=== PATIENT | female | born 1965 | race Caucasian/White ===

== ENCOUNTER → 2018-02-09 | Outpatient (CLI) | payer OTHER ==
--- NOTE | 2018-02-10 08:23 | RADIOLOGY IMAGING REPORT ---
FACILITY: [facility] PATIENT NAME: LYDIA CRISOSTOMO : [id number] MR: [id number] V: [id number] EXAM DATE: ORDERING PHYSICIAN: KELSEY GARCIA TECHNOLOGIST: Clare Sanchez PROCEDURE:BILATERAL DIGITAL SCREENING MAMMOGRAM WITH CAD ASSISTED INTERPRETATION & 3D TOMOSYNTHESIS COMPARISON:Prior mammograms 01/27/17, 01/18/16, 01/16/15, 11/22/12. INDICATIONS:SCREENING FINDINGS: Dense heterogeneous fibroglandular tissue is seen throughout the breasts. The parenchymal pattern has remained stable allowing for difference in mammographic technique & patient positioning. There is no evidence of malignant appearing mass, malignant appearing calcifications or other secondary sign of malignancy in either breast. DIAGNOSTIC CATEGORY 1--NEGATIVE. RECOMMENDATIONS: ROUTINE MAMMOGRAM AND CLINICAL EVALUATION. IMPRESSION: BIRADS 1: Negative. No significant abnormality is seen. Dictated by: Evangelina Dawn M.D. on 02/09/2018 at 16:26 Transcribed by: YUE on 02/10/2018 at 7:54 Approved by: Evangelina Dawn M.D. on 02/10/2018 at 8:22 [facility]
== END ==
LOC: MAMO 01:53
PROVIDERS: ATTEND Nurse Practitioner Psychiatric/Mental Health
DX: Z12.31 Encounter for screening mammogram for malignant neoplasm of breast (principal)
CPT/HCPCS: 77063; 77067

== ENCOUNTER 2018-04-28 00:04 | Day surgery (SDC) | payer OTHER ==
[~2018-04-28] VITALS: Ht 160 cm; Wt 64.0 kg
[~2018-04-28 00:04] MED LIST: ALBU8.5H IH; ALPR-429 PO; CHOL10005 PO; CYCL10TA29 PO; DUL100/5PT INH; IBUP-136 PO; MULT1CAP59 PO; PARO-243 PO; TIO18R INH; TRAZ50TA34 PO
[2018-04-28] MEDS ORDERED: PROPOFOL EMUL(*) 10MG/ML 20 ML 20 ML ONE ×3 (07:06→10:31)
[2018-04-28 08:15] VITALS: BP 142/74
[2018-04-28] MEDS ORDERED: NORMOSOL R SOLN(*) 1000 ML BAG 1,000 ML IV PRN (08:45)
[2018-04-28] MEDS ORDERED: LIDOCAINE/SOD BICARB 8.4% SYR ID ONE (08:45)
[2018-04-28 10:42] VITALS: BP 144/73
--- NOTE | 2018-04-28 10:49 | Short(Outpt) Discharge Summary ---
Discharge Summary Reason for Hosp/Final Diag: (1) Family hx colonic polyps Hospital Course & Plan: Colonoscopy with polypectomy x3 completed without problems. Departure Discharge to: Home, Self Care Discharge Instructions Home Meds Reported Medications Cyclobenzaprine Hcl (CYCLOBENZAPRINE HCL) 10 Mg Tablet, 10 MG PO PRN, #9 TAB 04/16/18 Albuterol Sulfate 90 Mcg/Act (PROAIR HFA 90 MCG/ACT) 8.5 Gm Hfa.aer.ad, 2 PUFF IH PRN, INHALER 04/16/18 Cholecalciferol (Vitamin D3) (VITAMIN D3) 1,000 Unit Tablet, 1500 UNIT PO QDAY, TAB 04/16/18 Alprazolam (XANAX) Unknown Strength Tablet, 1 MG PO PRN, TAB 03/23/18 Tiotropium Holden (SPIRIVA) Unknown Strength Inh, 18 MCG INH QDAY, INH 03/23/18 Mometasone/Formoterol (DULERA 100 MCG/5 MCG INHALER) Unknown Strength Inh, 200 MCG INH BID, INH 03/23/18 Trazodone Hcl (TRAZODONE HCL) Unknown Strength Tablet, 100 MG PO QHS 03/23/18 Paroxetine Hcl (PAXIL) Unknown Strength Tablet, 20 MG PO QDAY, TAB 03/23/18 Multivitamin (MULTIVITAMINS) 1 Each Capsule, 1 EACH PO, CAPSULE 03/23/18 Ibuprofen (IBUPROFEN) Unknown Strength Capsule, 600 MG PO BIDBS, CAPSULE 03/23/18 Diet: Regular Activity: As Tolerated Special Instructions: Your colonoscopy was completed without problems and your prep was excellent (Good Job!!). I removed 3 small polyps from your sigmoid colon and rectum and they were sent to pathology. My office will call you in the next week or two and let you know what the polyps are, but in any case, you should have another colonoscopy in 5 years due to your mother's history of colon polyps. CLYDE NELSON MD Apr 28, 2018 10:49
[2018-04-28 11:15] VITALS: BP 138/76
[2018-04-28 11:17] VITALS: BP 138/81
== END 2018-04-28 11:30 | disposition home or self-care (01) ==
LOC: OR 00:04
PROVIDERS: ATTEND Surgery
DX: Z12.11 Encounter for screening for malignant neoplasm of colon (principal); K63.5 Polyp of colon; Z83.71 Family history of colonic polyps; K62.1 Rectal polyp
CPT/HCPCS: 00811; 45385; 88305; J2704

== ENCOUNTER 2018-05-24 11:08 | Emergency (ER) | payer OTHER ==
[2018-05-24 11:13] VITALS: BP 145/57
--- NOTE | 2018-05-24 11:13 | ER Report ---
History and Physical Time Seen By MD: 11:13 HPI/ROS CHIEF COMPLAINT: Knee pain HISTORY OF PRESENT ILLNESS: This is a 52-year-old female presents to the emergency department for right knee pain. Patient states that last night she slipped and landed with her right knee on a tile floor. Has had increased pain and mild swelling since. Pain seems to be increasing. Patient having difficulties ambulating. No previous injuries to the knee. CMS intact. REVIEW OF SYSTEMS: Respiratory: No cough, no dyspnea. Cardiovascular: No chest pain, no palpitations. Gastrointestinal: No vomiting, no abdominal pain. Musculoskeletal: As above. Allergies: Coded Allergies: No Known Drug Allergies (Unverified , 05/24/18) Home Meds Active Scripts Ondansetron Hcl (ZOFRAN) 4 Mg Tablet, 4 MG PO Q4-6H PRN for prn, #20 TAB Prov:JIMMY AVILES [facility] 05/24/18 Cyclobenzaprine Hcl (CYCLOBENZAPRINE HCL) 10 Mg Tablet, 5-10 MG PO TID PRN for MUSCLE SPASMS, #9 TAB 0 Refills Prov:JIMMY AVIELS [facility] 05/24/18 Reported Medications Cyclobenzaprine Hcl (CYCLOBENZAPRINE HCL) 10 Mg Tablet, 10 MG PO PRN, #9 TAB 04/16/18 Albuterol Sulfate 90 Mcg/Act (PROAIR HFA 90 MCG/ACT) 8.5 Gm Hfa.aer.ad, 2 PUFF IH PRN, INHALER 04/16/18 Cholecalciferol (Vitamin D3) (VITAMIN D3) 1,000 Unit Tablet, 1500 UNIT PO QDAY, TAB 04/16/18 Alprazolam (XANAX) Unknown Strength Tablet, 1 MG PO PRN, TAB 03/23/18 Tiotropium Nocona (SPIRIVA) Unknown Strength Inh, 18 MCG INH QDAY, INH 03/23/18 Mometasone/Formoterol (DULERA 100 MCG/5 MCG INHALER) Unknown Strength Inh, 200 MCG INH BID, INH 03/23/18 Trazodone Hcl (TRAZODONE HCL) Unknown Strength Tablet, 100 MG PO QHS 03/23/18 Paroxetine Hcl (PAXIL) Unknown Strength Tablet, 20 MG PO QDAY, TAB 03/23/18 Multivitamin (MULTIVITAMINS) 1 Each Capsule, 1 EACH PO, CAPSULE 03/23/18 Ibuprofen (IBUPROFEN) Unknown Strength Capsule, 600 MG PO BIDBS, CAPSULE 03/23/18 Past Medical/Surgical History The patient has a past medical and surgical history of COPD, arthritis, osteoporosis, wears glasses, deviated septum with repair, hysterectomy, cholecystectomy, depression, anxiety, does drink large quantities of alcohol weekly, hysterectomy, tonsillectomy, mole removal. Reviewed Nurses Notes: Yes Hx Smoking: Yes (15 CIGARETTES A DAY) Smoking Status: Current: Every Day Smoker Hx Alcohol Use: Yes (18 BEERS A WEEK) Constitutional Vital Sign - Last 24 Hours 05/24/18 11:13 Temp 98.0 Pulse 107 Resp 14 B/P (MAP) 145/57 Pulse Ox 93 Physical Exam General Appearance: The patient is alert, has no immediate need for airway protection and no current signs of toxicity. Eyes: Pupils equal and round no injection. Respiratory: Chest is non tender, lungs are clear to auscultation. Cardiac: regular rate and rhythm. Gastrointestinal: Abdomen is soft and non tender, no masses, bowel sounds normal. Musculoskeletal: Neck: Neck is supple and non tender. Extremities able to lift the right leg off the gurney, no patellar discomfort , right medial discomfort with palpation, swelling with small amount of palpable fluid. Small contusion to the patella and medial knee. Unable to valgus or varus the knee due to pain. Negative anterior-posterior drawer. Skin: No rashes or lesions. DIFFERENTIAL DIAGNOSIS: After history and physical exam differential diagnosis was considered for contusion, anterior cruciate ligament injury, patellar fracture, PCL injury, bursitis and meniscus tear. Medical Decision Making EKG/Imaging Imaging EXAMINATION: Right knee radiographs HISTORY: Fall, patellar region pain FINDINGS: Frontal, oblique, lateral and sunrise views obtained. No fracture. Alignment is normal. The joint spaces are normal. No joint effusion. IMPRESSION: Normal right knee radiographs. Report Dictated By: Scott Lerner MD at 05/24/2018 12:19 PM Report E-Signed By: Scott Lerner MD at 05/24/2018 12:24 PM WSN:ANA PAULA ED Course/Re-evaluation ED Course The patient was admitted to room. A history and physical were obtained. Differential diagnoses were considered. Examination of the right knee did warrant an x-ray of the right knee. Negative for any acute abnormalities. Pat ient was given 5 mg IM morphine, 4 mg ODT Zofran. Patient was also placed in a knee immobilizer and Yasir wrap. Crutches were provided. I did tell the patient this is likely a contusion and return resolve however I do recommend follow-up with [facility] for reevaluation of the knee. The patient was in agreement with this plan of care. Patient was discharged home. Decision to Disposition Date: May 24, 2018 Decision to Disposition Time: 12:35 Depart Departure Latest Vital Signs Vital Signs Date Time Temp Pulse Resp B/P (MAP) Pulse Ox O2 Delivery O2 Flow Rate FiO2 05/24/18 11:13 98.0 107 14 145/57 93 Impression: Primary Impression: Right knee injury Additional Impression: Contusion of right knee Condition: Improved Disposition: HOME OR SELF-CARE Referrals: ZAN RODRIGUEZ MD 1 Week New Scripts Ondansetron Hcl (ZOFRAN) 4 Mg Tablet 4 MG PO Q4-6H PRN for prn, #20 TAB Prov: JIMMY AVILES [facility]- 05/24/18 Cyclobenzaprine Hcl (CYCLOBENZAPRINE HCL) 10 Mg Tablet 5-10 MG PO TID PRN for MUSCLE SPASMS, #9 TAB 0 Refills Prov: JIMMY AVILES [facility]- 05/24/18 Patient Instructions: Contusion in Adults (ED), Knee Pain (ED) Additional Instructions: No concerning findings on your knee x-ray. Given the amount of pain your experiencing I would recommend following up with [facility] within 1 week for reevaluation. Use the Yasir wrap and knee immobilizer for pain control and support, use the crutches as needed, you can adjust the knee immobilizer as needed. Take the Flexeril as needed for knee pain. Take Zofran as needed for nausea and vomiting. Take ibuprofen or Tylenol as needed for discomfort. Drink plenty of water. Get plenty of rest. Return to the emergency department for any concerns or worsening symptoms. Problem Qualifiers Primary Impression: Right knee injury Encounter type: initial encounter Qualified Codes: S89.91XA - Unspecified injury of right lower leg, initial encounter Additional Impression: Contusion of right knee Encounter type: initial encounter Qualified Codes: S80.01XA - Contusion of right knee, initial encounter JIMMY AVILESP-BC May 24, 2018 11:13
[2018-05-24] MEDS ORDERED: MORPHINE 10 MG/ML SYR IM ONE (12:20)
[2018-05-24] MEDS ORDERED: ONDANSETRON 4 MG ODT TABDP SL ONE (12:20)
--- NOTE | 2018-05-24 12:28 | RADIOLOGY IMAGING REPORT ---
FACILITY: [facility] PATIENT NAME: Keily Holder : 1965 MR: [id number] V: [id number] EXAM DATE: ORDERING PHYSICIAN: JIMMY AVILES TECHNOLOGIST: Location: [facility] Patient: Keily Holder : 1965 Visit/Account:[id number] Date of Sevice: 05/24/2018 EXAMINATION: Right knee radiographs HISTORY: Fall, patellar region pain FINDINGS: Frontal, oblique, lateral and sunrise views obtained. No fracture. Alignment is normal. The joint spaces are normal. No joint effusion. IMPRESSION: Normal right knee radiographs. Report Dictated By: Scott Lerner MD at 05/24/2018 12:19 PM Report E-Signed By: Scott Lerner MD at 05/24/2018 12:24 PM WSN:[email or web address]
[2018-05-24] MEDS ORDERED: ONDA4TAB97 PO (12:38)
[2018-05-24] MEDS ORDERED: CYCL10TA29 PO (12:38)
== END 2018-05-24 12:44 | disposition home or self-care (01) ==
LOC: ER 11:35
DX: S80.01XA Contusion of right knee, initial encounter (principal); S89.91XA Unspecified injury of right lower leg, initial encounter; W01.0XXA Fall on same level from slipping, tripping and stumbling without subsequent striking against object, initial encounter
CPT/HCPCS: 73564; 96372; 99283; J2270; L1830; S0119